=== PATIENT | female | born 1940 | race Caucasian/White ===

== ENCOUNTER 2022-09-03 20:35 | Inpatient (IN) | payer OTHER, MEDICAID ==
[~2022-09-03] VITALS: Ht 2.5 cm; Wt 59.5 kg
[2022-09-04] VITALS (7 sets, daily range): BP systolic 150–169; PULSE 72–76; RESP 16–18; TEMP 97.4–98.5; O2SAT 93–97
[2022-09-04] MEDS ORDERED: DEXTROSE 50% JECT 50 ML DISP.SYRIN IVP PRN (02:00)
[2022-09-04] MEDS ORDERED: GLUCOSE (DEXTROSE) ORAL GEL -Adults PO PRN (02:00)
[2022-09-04] MEDS ORDERED: INSULIN REGULAR, HUMAN 100 UNITS/ML, 3 ML VIAL (humuLIN R) SUBCUT PRN (02:00)
[2022-09-04] MEDS ORDERED: MORPHINE 2 MG/ML INJ. SYRINGE IVP PRN ×2 (02:00)
[2022-09-04] MEDS ORDERED: D5W 1,000 ML IV PRN (02:00)
--- NOTE | 2022-09-04 02:00 | NUR ---
ADMISSION NOTE Received patient from [facility] via Medical transport in a gurney, for a direct ADMISSION. Patient admitted with diagnosis of SMALL BOWEL OBSTRUCTION. Patient is AA&Ox1 Macedonian speaking, does not make needs known with a history of dementia. Patient was admitted under the care of Dr. Billie Montes. Was notified and new orders were received to admit the patient and follow up care. Patient had no belonging. Patient was assessed as indicated and NGT was noted to the Right nare that is now on intemittent suction. Fluids were started as indicated. Will continue to monitor.
[2022-09-04] MEDS: D5/0.45 NS 1,000 ML IV SCH ×2 (03:49→13:59)
[2022-09-04 04:43] LABS: BASOPHILS # (AUTO) 0.1 K/uL (0.0-0.2); BASOPHILS % (AUTO) 0.6 % (0.0-2.0); EOSINOPHILS % (AUTO) 0.1 % (0.0-4.0); HEMATOCRIT 38.7 % (36-48); HEMOGLOBIN 12.7 g/dL (12.0-16.0); LYMPHOCYTES # (AUTO) 1.5 K/uL (1.0-5.5); LYMPHOCYTES % (AUTO) 17.1 % (20.5-51.5); MEAN CORPUSCULAR HEMOGLOBIN 28 pg (27-31); MEAN CORPUSCULAR HGB CONC 33 % (32-36); MEAN CORPUSCULAR VOLUME 84 fL (79.0-98.0); MONOCYTES # (AUTO) 0.9 K/uL (0.0-1.0); MONOCYTES % (AUTO) 9.7 % (1.7-9.3); NEUTROPHILS # (AUTO) 6.4 K/uL (1.8-7.7); NEUTROPHILS % (AUTO) 72.5 % (40.0-70.0); PLATELET COUNT (AUTO) 199 K/uL (130-430); RED BLOOD CELL COUNT(AUTO) 4.59 MIL/uL (4.2-6.2); RED CELL DISTRIBUTION WIDTH 14.9 % (9.0-15.0); WHITE BLOOD COUNT (AUTO) 8.8 K/uL (4.8-10.8)
[2022-09-04 04:57] LABS: ALANINE AMINOTRANSFERASE 41 U/L (12-78); ALBUMIN 3.4 g/dL (3.4-4.8); ANION GAP 8 (5-15); ASPARTATE AMINOTRANSFERASE 47 U/L (10-37); CALCIUM 8.2 mg/dL (8.4-11.0); CHLORIDE 105 mmol/L (98-107); CREATININE 0.98 mg/dL (0.55-1.30); GLUCOSE 152 mg/dL (70-99); TOTAL BILIRUBIN 0.8 mg/dL (0.0-1.0); UREA NITROGEN, BLOOD 39 mg/dL (8-21)
--- NOTE | 2022-09-04 08:32 | NUR ---
OPENING NOTES: RECEIVED BEDSIDE SBAR FROM PM SHIFT NURSE CARMINE RN, NO S/S OF ANY DISTRESS NON LABOR BREATHING, BED AT LOCKED AND LOW POSITION CALL LIGHT IN REACH, ABLE TO MAKE NEEDS KNOWN, ALL SAFETY CHECKS DONE AND WILL DO THOUGHT THE DAY. WILL GIVE MEDS PER ORDERS.
--- NOTE | 2022-09-04 08:45 | NUR ---
CONSULTATION PAGED/CALLED Reason for Consultation: sbo Person Who was Notified: left message for Dr. Mathew adventure education teacher Consulting Physician: Dr. Anthony Mathew adventure education teacher for Dr. Cook [employer] Legal Assistant Specialty: surgeon Ordering Physician: Billie
--- NOTE | 2022-09-04 12:13 | NUR ---
Received SS consult: ELECTRIC REPAIR SUPERVISOR attempted to meet with , however, she was not able to be aroused to provide any meaningful information. Pt. with HX of Dementia, she was transferred from [facility] today. ELECTRIC REPAIR SUPERVISOR contacted family and left VM to Susannah Clements [phone] to obtain Pt. HX for SS assessment / DCP planning. Pt. has HCP, ELECTRIC REPAIR SUPERVISOR also contacted HCP social sciences professor to refer Pt. for follow-up.
[2022-09-04] MEDS ORDERED: ONDANSETRON HCL 4 MG/2 ML VIAL IVP PRN (14:15)
[2022-09-04] MEDS ORDERED: LORazepam 2 MG/ML VIAL IVP PRN (14:15)
[2022-09-04] MEDS: cefTRIAXone 1 GM in D5W 50 ML IV SCH (16:58)
--- NOTE | 2022-09-04 18:43 | NUR ---
CLOSING NOTES: PATIENT REMAINED STABLE THOUGHT OUT THE DAY NO S/S OF ANY DISTRESS, NON LABOR BREATHING, BED AT LOCKED AND LOW POSITION, CALL LIGHT IN REACH, ALL SAFETY CHECKS DONE, WILL GIVE PM SHIFT NURSE BEDSIDE SBAR.
[2022-09-04] MEDS ORDERED: LABETALOL 100 MG/ 20ML VIAL IVP ONE (20:45)
[2022-09-05] VITALS (8 sets, daily range): BP systolic 131–152; PULSE 64–78; RESP 17–18; TEMP 96.9–99.1; O2SAT 95–97
[2022-09-05] MEDS: D5/0.45 NS 1,000 ML IV SCH ×3 (00:02→20:02)
--- NOTE | 2022-09-05 01:15 | NUR ---
IV PLACEMENT: #22 gauge angiocath placed to LFA. Use of asceptic technique. Opsite placed over site. Blood return noted. Flushed with 10 cc of normal saline. No evidence of infiltration noted. Patient tolerated well.
[2022-09-05 06:02] LABS: BASOPHILS % (AUTO) 0.2 % (0.0-2.0); EOSINOPHILS # (AUTO) 0.1 K/uL (0.0-0.4); EOSINOPHILS % (AUTO) 0.8 % (0.0-4.0); HEMATOCRIT 35.3 % (36-48); HEMOGLOBIN 11.7 g/dL (12.0-16.0); LYMPHOCYTES # (AUTO) 1.4 K/uL (1.0-5.5); LYMPHOCYTES % (AUTO) 21.2 % (20.5-51.5); MEAN CORPUSCULAR HEMOGLOBIN 28 pg (27-31); MEAN CORPUSCULAR HGB CONC 33 % (32-36); MEAN CORPUSCULAR VOLUME 84 fL (79.0-98.0); MONOCYTES # (AUTO) 0.7 K/uL (0.0-1.0); NEUTROPHILS # (AUTO) 4.6 K/uL (1.8-7.7); NEUTROPHILS % (AUTO) 67.8 % (40.0-70.0); PLATELET COUNT (AUTO) 175 K/uL (130-430); RED BLOOD CELL COUNT(AUTO) 4.18 MIL/uL (4.2-6.2); RED CELL DISTRIBUTION WIDTH 14.4 % (9.0-15.0); WHITE BLOOD COUNT (AUTO) 6.8 K/uL (4.8-10.8)
[2022-09-05 06:18] LABS: ANION GAP 7 (5-15); CHLORIDE 105 mmol/L (98-107); CREATININE 0.75 mg/dL (0.55-1.30); GLUCOSE 139 mg/dL (70-99); UREA NITROGEN, BLOOD 22 mg/dL (8-21)
--- NOTE | 2022-09-05 06:57 | NUR ---
CLOSING NOTES PT IN STABLE CONDITION. TURNED AND RE-POSITIONED Q 2H. PT KEPT CLEAN AND DRY. UA COLLECTED AND SENT TO LAB. NO FACIAL GRIMACING OR C/O PAIN. BED ALARM ON. BED LOCKED AND IN LOWEST POSITION. CALL LIGHT PLACED WITHIN PT'S REACH. SAFETY PRECAUTIONS MAINTAINED.
[2022-09-05 07:11] LABS: BILIRUBIN,URINE NEGATIVE (NEGATIVE); BLOOD, URINE NEGATIVE (NEGATIVE); CLARITY/URINE SL CLOUDY (CLEAR); COLOR,URINE YELLOW (YELLOW); GLUCOSE,URINE NEGATIVE (NEGATIVE); KETONES,URINE NEGATIVE (NEGATIVE); LEUKOCYTE ESTERASE ,URINE NEGATIVE (NEGATIVE); NITRITE, URINE POSITIVE (NEGATIVE); PROTEIN URINE 1+ (NEGATIVE); UROBILINOGEN,URINE 0.2 (0.2-1.0)
--- NOTE | 2022-09-05 08:14 | NUR ---
OPENING NOTES: RECEIVED BEDSIDE SBAR FROM PM SHIFT NURSE, NO S/S OF ANY DISTRESS NON LABOR BREATHING, BED AT LOCKED AND LOW POSITION CALL LIGHT IN REACH, ABLE TO MAKE NEEDS KNOWN, ALL SAFETY CHECKS DONE AND WILL DO THOUGHT THE DAY. WILL GIVE MEDS PER ORDERS.
[2022-09-05 09:15] LABS: RBC,URINE NONE SEEN /HPF (0-3); WBC,URINE 0-3 /HPF (0-3)
[2022-09-05 09:16] LABS: BACTERIA,URINE MODERATE /HPF (None Seen)
[2022-09-05 09:17] LABS: TRICHOMONAS,URINE None Seen /HPF (None Seen); YEAST,URINE Few /HPF (None Seen)
[2022-09-05 09:18] LABS: CALCIUM OXALATE CRYSTALS,UR None Seen /HPF (None Seen); CALCIUM PHOSPHATE CRYSTALS,UR None Seen /HPF (None Seen); COARSE GRANULAR CASTS,URINE None Seen /LPF (None Seen); FINE GRANULAR CASTS,URINE None Seen /LPF (None Seen); HYALINE CASTS, URINE None Seen /LPF (None Seen); MUCUS,URINE None Seen /LPF (None Seen); OTHER CASTS, URINE None Seen /LPF (None Seen); OTHER CRYSTALS,URINE None Seen /HPF (None Seen); TRIPLE PHOSPHATE CRYSTAL,UR None Seen /HPF (None Seen); URIC ACID CRYSTALS,URINE None Seen /HPF (None Seen); URINE AMORPHOUS PHOSPHATES None Seen /HPF (None Seen); URINE AMORPHOUS URATE None Seen /HPF (None Seen); WAXY CASTS,URINE None Seen /LPF (None Seen)
[2022-09-05] MEDS ORDERED: hydrALAZINE HCL 20 MG/ML VIAL IVP PRN (13:15)
[2022-09-05] MEDS: cefTRIAXone 1 GM in D5W 50 ML IV SCH (15:25)
--- NOTE | 2022-09-05 18:40 | NUR ---
CLOSING NOTES: PATIENT REMAINED STABLE THOUGHT THE DAY, NO S/S OF ANY DISTRESS, NON LABOR BREATHING, ALL SAFETY CHECK DONE, BED AT LOCKED AND LOW POSITION CALL LIGHT IN REACH, ABLE TO MAKE ALL NEEDS KNOWN, WILL GIVE PM SHIFT NURSE BEDSIDE SBAR.
--- NOTE | 2022-09-05 19:35 | NUR ---
OPENING NOTES RECEIVED REPORT FROM AM SHIFT NURSE. PT AWAKE, RESTING IN BED. FAMILY MEMBER AT BEDSIDE. NO S/S OF ANY DISTRESS NON LABORED BREATHING. NGT PATENT. PATIENT IS CLEAN AND DRY. VSS. BED AT LOCKED AND AT LOWEST POSITION. BED ALARM ACTIVATED. CALL LIGHT IN REACH. SAFETY PRECAUTIONS IN PLACE AND MAINTAINED.
[2022-09-06] VITALS (7 sets, daily range): BP systolic 123–145; PULSE 59–67; RESP 15–18; TEMP 97.4–98.8; O2SAT 97–98
[2022-09-06] MEDS: D5/0.45 NS 1,000 ML IV SCH ×3 (04:20→23:38)
[2022-09-06 06:07] LABS: BASOPHILS % (AUTO) 0.3 % (0.0-2.0); EOSINOPHILS # (AUTO) 0.2 K/uL (0.0-0.4); EOSINOPHILS % (AUTO) 2.5 % (0.0-4.0); HEMATOCRIT 33.9 % (36-48); HEMOGLOBIN 11.2 g/dL (12.0-16.0); LYMPHOCYTES # (AUTO) 1.5 K/uL (1.0-5.5); LYMPHOCYTES % (AUTO) 20.1 % (20.5-51.5); MEAN CORPUSCULAR HEMOGLOBIN 28 pg (27-31); MEAN CORPUSCULAR HGB CONC 33 % (32-36); MEAN CORPUSCULAR VOLUME 84 fL (79.0-98.0); MONOCYTES # (AUTO) 0.6 K/uL (0.0-1.0); MONOCYTES % (AUTO) 8.5 % (1.7-9.3); NEUTROPHILS # (AUTO) 5.1 K/uL (1.8-7.7); NEUTROPHILS % (AUTO) 68.6 % (40.0-70.0); PLATELET COUNT (AUTO) 168 K/uL (130-430); RED BLOOD CELL COUNT(AUTO) 4.04 MIL/uL (4.2-6.2); RED CELL DISTRIBUTION WIDTH 14.4 % (9.0-15.0); WHITE BLOOD COUNT (AUTO) 7.4 K/uL (4.8-10.8)
[2022-09-06 06:22] LABS: ALANINE AMINOTRANSFERASE 21 U/L (12-78); ALBUMIN 2.6 g/dL (3.4-4.8); ANION GAP 6 (5-15); ASPARTATE AMINOTRANSFERASE 15 U/L (10-37); CALCIUM 7.7 mg/dL (8.4-11.0); CHLORIDE 100 mmol/L (98-107); CREATININE 0.77 mg/dL (0.55-1.30); GLUCOSE 114 mg/dL (70-99); TOTAL BILIRUBIN 0.5 mg/dL (0.0-1.0); UREA NITROGEN, BLOOD 12 mg/dL (8-21)
--- NOTE | 2022-09-06 06:28 | NUR ---
CLOSING NOTES PT RESTING IN BED, VISIBLE CHEST RISE AND FALL. RESPONSIVE TO VERBAL AND TACTILE STIMULI. NO S/S OF DISTRESS. NGT PATENT. PATIENT IS CLEAN AND DRY. BED AT LOCKED AND AT LOWEST POSITION. BED ALARM ACTIVATED. CALL LIGHT IN REACH. SAFETY PRECAUTIONS IN PLACE AND MAINTAINED.
[2022-09-06 07:46] LABS: ERYTHROCYTE SEDIMENTATION RATE 27 MM/HR (0-20)
--- NOTE | 2022-09-06 08:14 | NUR ---
opening notes: patient in bed with eyes closed. responded to name. no s/s of distress or pain reported. breathing is even and unlabored on ra 97%. all needs met at this time, safety checks made and call light within reach.
[2022-09-06] MEDS ORDERED: METOCLOPRAMIDE HCL 10 MG/2 ML VIAL IVP ONE (12:45)
[2022-09-06] MEDS: cefTRIAXone 1 GM in D5W 50 ML IV SCH (15:39)
--- NOTE | 2022-09-06 17:44 | NUR ---
ST EVALUATION COMPLETED. ST TX NOT INDICATED AT THIS TIME. RECOMMEND PO DIET OF PUREE AND THIN LIQUIDS. 1:1 SUPERVISION AND FULL ASPIRATION PRECAUTIONS.
[2022-09-06] MEDS: METOCLOPRAMIDE HCL 10 MG/2 ML VIAL IVP SCH ×2 (18:09→23:35)
--- NOTE | 2022-09-06 18:44 | NUR ---
closing notes: patient in bed with eyes opened. family at bedside. no s/s of distress or pain noted. breathing is even and unlabored on ra 97%. waiting for call back from md for dvt prophylactic. all needs met at this time, safety checks made and call light within reach. will endorse to shift supervisor melting nurse. Addendum: 09/06/22 at [address]el LVN [address] ANTOINE ORDERED SCD'S BILATERALLY. APPLIED THEM TO PATIENT LEGS.
[2022-09-07] VITALS (7 sets, daily range): BP systolic 135–159; PULSE 63–71; RESP 16–18; TEMP 97.5–98.3; O2SAT 96–97
[2022-09-07 05:24] LABS: BASOPHILS % (AUTO) 0.1 % (0.0-2.0); EOSINOPHILS # (AUTO) 0.1 K/uL (0.0-0.4); EOSINOPHILS % (AUTO) 1.2 % (0.0-4.0); HEMATOCRIT 33.2 % (36-48); HEMOGLOBIN 11.3 g/dL (12.0-16.0); LYMPHOCYTES # (AUTO) 1.5 K/uL (1.0-5.5); MEAN CORPUSCULAR HEMOGLOBIN 28 pg (27-31); MEAN CORPUSCULAR HGB CONC 34 % (32-36); MEAN CORPUSCULAR VOLUME 83 fL (79.0-98.0); MONOCYTES # (AUTO) 0.6 K/uL (0.0-1.0); NEUTROPHILS # (AUTO) 4.6 K/uL (1.8-7.7); NEUTROPHILS % (AUTO) 67.7 % (40.0-70.0); PLATELET COUNT (AUTO) 182 K/uL (130-430); RED BLOOD CELL COUNT(AUTO) 4.02 MIL/uL (4.2-6.2); WHITE BLOOD COUNT (AUTO) 6.7 K/uL (4.8-10.8)
[2022-09-07 05:46] LABS: ANION GAP 8 (5-15); CALCIUM 8.2 mg/dL (8.4-11.0); CHLORIDE 100 mmol/L (98-107); CREATININE 0.77 mg/dL (0.55-1.30); GLUCOSE 130 mg/dL (70-99); UREA NITROGEN, BLOOD 7 mg/dL (8-21)
[2022-09-07] MEDS: METOCLOPRAMIDE HCL 10 MG/2 ML VIAL IVP SCH ×4 (05:46→23:38)
--- NOTE | 2022-09-07 08:00 | NUR ---
Start of shift Pt asleep and does wake up when aroused with light stimuli, then falls back to sleep. Pt has IV in RFA intact and patent infusing iVF's well. Pt next to nurses' station for close observation for needs and care. Call light within reach.
[2022-09-07] MEDS: D5/0.45 NS 1,000 ML IV SCH ×2 (09:50→20:21)
[2022-09-07] MEDS ORDERED: MINERAL OIL 30 ML UDC PO ONE (12:00)
[2022-09-07 13:07] LABS: BASOPHILS % (AUTO) 0.4 % (0.0-2.0); EOSINOPHILS # (AUTO) 0.1 K/uL (0.0-0.4); EOSINOPHILS % (AUTO) 1.5 % (0.0-4.0); HEMATOCRIT 33.9 % (36-48); HEMOGLOBIN 11.5 g/dL (12.0-16.0); LYMPHOCYTES # (AUTO) 1.7 K/uL (1.0-5.5); LYMPHOCYTES % (AUTO) 24.7 % (20.5-51.5); MEAN CORPUSCULAR HEMOGLOBIN 28 pg (27-31); MEAN CORPUSCULAR HGB CONC 34 % (32-36); MEAN CORPUSCULAR VOLUME 83 fL (79.0-98.0); MONOCYTES # (AUTO) 0.6 K/uL (0.0-1.0); NEUTROPHILS # (AUTO) 4.4 K/uL (1.8-7.7); NEUTROPHILS % (AUTO) 64.4 % (40.0-70.0); PLATELET COUNT (AUTO) 188 K/uL (130-430); RED BLOOD CELL COUNT(AUTO) 4.09 MIL/uL (4.2-6.2); RED CELL DISTRIBUTION WIDTH 14.2 % (9.0-15.0); WHITE BLOOD COUNT (AUTO) 6.7 K/uL (4.8-10.8)
[2022-09-07] MEDS: cefTRIAXone 1 GM in D5W 50 ML IV SCH (14:42)
--- NOTE | 2022-09-07 18:30 | NUR ---
End of shift Pt has had her daughters at bedside all shift to assist her with needs and care all shift. Pt was assisted in eating her Pureed diet for lunch and dinner. Pt tolerated diet well. Pt was maintained with safety precautions all shift. Pt was checked on q1' and PRN all shift for needs and care. RFA IV intact and patent infusing IVF's well. Call light within reach. Dr Downs was at bedside assessing pt and answering pt's daughter questions and concerns. Pt had PT eval and report on [employer] at this time. Pt has high dementia and unable to comprehend simple questions and orders. Pt stable at this time with daughter at bedside at this time. Call light within reach.
--- NOTE | 2022-09-07 20:32 | NUR ---
OPENING NOTES: Patient is was received during change of shift from AM shift nurse. Patient is in bed with daughter at bedside. Patient is AA&Ox1 unable to make needs known, with no noted s/s of distress at this time. Chest rise is even and unlabored on RA and call light is within reach. Safety measures are in place as per protocol. Will resume care and continue to monitor throughout the shift.
[2022-09-08 00:58] VITALS: BP_SYST 146; PULSE 76; RESP 20; TEMP 98.9; O2SAT 97
[2022-09-08] MEDS: METOCLOPRAMIDE HCL 10 MG/2 ML VIAL IVP SCH ×6 (05:31→23:10)
[2022-09-08] MEDS: D5/0.45 NS 1,000 ML IV SCH ×3 (05:33→23:10)
--- NOTE | 2022-09-08 06:56 | NUR ---
CLOSING NOTES: Patient is in bed resting no s/s of distress is noted at this time. Chest rise is even and unlabored on RA. Patient is noted to be stable at this time, all current shift needs have been met at this time and safety measures are in place at this time as per protocol. Will differ care to AM shift nurse for continuity of care.
[2022-09-08 10:15] VITALS: BP_SYST 143; PULSE 67; RESP 16; TEMP 98.1; O2SAT 98
[2022-09-08] MEDS: cefTRIAXone 1 GM in D5W 50 ML IV SCH (16:38)
--- NOTE | 2022-09-08 16:40 | NUR ---
PHYSICAL THERAPY CO-SIGN The Physical Therapy Progress Notes documented by English Adjunct Faculty have been reviewed. Reviewed/Co-Signed by: Garrett Hsu Documentation Done by:LEILA NINA Addendum: 09/08/22 at 1641 by Garrett Hsu PT Amended: Links added.
--- NOTE | 2022-09-08 17:45 | NUR ---
Dr. Wise rounding on unit and made aware that pt potassium level was 3.1 and does not appear to have been replaced. Also informed to complete med reconcilliation.
--- NOTE | 2022-09-08 18:04 | NUR ---
Pt's PIV removed d/t mild redness at site and pain with flushing. Reglan will be wasted. daughter requested to wait to see if the pt will discharge tonight as dr. Li is on the unit making rounds. New PIV will be started and reglan given if she does not discharge.
[2022-09-08 18:09] VITALS: BP_SYST 136; PULSE 69; RESP 17; TEMP 97.9; O2SAT 97
--- NOTE | 2022-09-08 19:00 | NUR ---
I have spoken with Susannah, pt's daughter, about discharge planning. She was requesting to DC prior to having the home health and DME arranged. She stated they would continue care same as pre hospitalization until initiated. Dr. Wise was made aware of the request but stated the pt is with [facility] and could be a liability for himself. I informed Susannah that I have left a message with FLORENCIO Thorpe, requesting assistance and she reported she has previously spoken with FLORENCIO Sanon, with [employer] and has her info and will call her. Until the arrangements are made he will not discharge but would have to leave AMA, daughter educated and stated will is willing to stay.
--- NOTE | 2022-09-08 19:30 | NUR ---
The pt's daughter, Susannah. has refused new PIV start for her mother.
[2022-09-08 20:00] VITALS: BP_SYST 187; PULSE 62; RESP 18; TEMP 97.4; O2SAT 95
[2022-09-08 20:15] VITALS: O2SAT 96
[2022-09-08] MEDS ORDERED: cloNIDine HCL 0.1 MG TABLET PO PRN (22:30)
[2022-09-09] VITALS: BP_SYST 120; PULSE 74; RESP 16; TEMP 96.9; O2SAT 96
[2022-09-09 05:10] VITALS: BP_SYST 130; PULSE 71; RESP 16
[2022-09-09 06:23] LABS: ANION GAP 5 (5-15); CALCIUM 8.5 mg/dL (8.4-11.0); CHLORIDE 101 mmol/L (98-107); CREATININE 0.92 mg/dL (0.55-1.30); GLUCOSE 101 mg/dL (74-106); UREA NITROGEN, BLOOD 8 mg/dL (8-21)
[2022-09-09 06:24] LABS: BASOPHILS % (AUTO) 0.4 % (0.0-2.0); EOSINOPHILS # (AUTO) 0.1 K/uL (0.0-0.4); EOSINOPHILS % (AUTO) 0.9 % (0.0-4.0); HEMATOCRIT 33.3 % (36-48); HEMOGLOBIN 11.3 g/dL (12.0-16.0); LYMPHOCYTES # (AUTO) 1.9 K/uL (1.0-5.5); MEAN CORPUSCULAR HEMOGLOBIN 28 pg (27-31); MEAN CORPUSCULAR HGB CONC 34 % (32-36); MEAN CORPUSCULAR VOLUME 83 fL (79.0-98.0); MONOCYTES # (AUTO) 0.8 K/uL (0.0-1.0); MONOCYTES % (AUTO) 11.6 % (1.7-9.3); NEUTROPHILS # (AUTO) 4.3 K/uL (1.8-7.7); NEUTROPHILS % (AUTO) 60.1 % (40.0-70.0); PLATELET COUNT (AUTO) 210 K/uL (130-430); RED BLOOD CELL COUNT(AUTO) 4.03 MIL/uL (4.2-6.2); RED CELL DISTRIBUTION WIDTH 13.9 % (9.0-15.0); WHITE BLOOD COUNT (AUTO) 7.2 K/uL (4.8-10.8)
--- NOTE | 2022-09-09 06:51 | NUR ---
CLOSING NOTES: Patient is in bed resting no s/s of distress is noted at this time. Chest rise is even and unlabored on RA. Patient was reported to have an elevated BP during the shift, current PRN was for IVP but daughter refused the infusion of new line, Dr. Wise was paged and new order was received for PO medication to be given PRN for SBP >150. Upon reassessment BP was noted to be WNL so PRN was no longer required but order remains in place for future need. Patient is pending possible discharge this morning so patient belongings were collected and take by daughter Susannah who was at bedside and inventory and belonging intervention was completed. Patient is noted to be stable at this time, all current shift needs have been met at this time, and safety measures remain in place as per protocol. Will differ care to AM shift nurse for continuity of care.
[2022-09-09 09:19] VITALS: BP_SYST 106; PULSE 72; RESP 22; TEMP 97.1; O2SAT 96
[2022-09-09] MEDS: METOCLOPRAMIDE HCL 10 MG/2 ML VIAL IVP SCH (11:39)
[2022-09-09] MEDS: D5/0.45 NS 1,000 ML IV SCH (11:39)
[2022-09-09 11:41] VITALS: BP_SYST 119; PULSE 64; RESP 20; TEMP 96.7; O2SAT 98
[2022-09-09] MEDS: cefTRIAXone 1 GM in D5W 50 ML IV SCH (14:20)
--- NOTE | 2022-09-09 15:21 | NUR ---
PHYSICAL THERAPY CO-SIGN The Physical Therapy Progress Notes documented by Data Entry Processor have been reviewed. Reviewed/Co-Signed by: Garrett Hsu Documentation Done by:LEILA NINA Addendum: 09/09/22 at 1521 by Garrett Hsu PT Amended: Links added.
[2022-09-09 16:00] VITALS: BP_SYST 132; PULSE 70; RESP 18; TEMP 97.9; O2SAT 96
--- NOTE | 2022-09-09 16:01 | NUR ---
Dr. Wise has been paged to inform him that all arrangements have been made for HH and DME. Requesting DC orders.
[2022-09-09 17:19] VITALS: BP_SYST 132; PULSE 70; RESP 18; TEMP 97.9; O2SAT 96
--- NOTE | 2022-09-09 17:50 | NUR ---
D/C Patient Patient's daughters were given D/C instructions. There were no medications listed in the system but the daughter reported she was taking home medications and they were instructed to continue. They were also educated on pureed diet and how to advance as tolerated. Exit Care provided. Daughters verbalized understanding. MD discussed with family the results and treatment provided. Ambulatory with assist for discharge to home. Patient in stable condition, ID band removed. IV catheter removed, intact and dressing applied, no active bleeding. No new rx given. Family educated on pain management. All belongings sent with patient per family report. Pt was escorted to [facility] by myself and assisted into private vehicle.
== END 2022-09-09 17:50 | disposition home health service (06) | DRG 389 ==
LOC: SMU 23:40
PROVIDERS: ADMIT Preventive Medicine Preventive Medicine/Occupational Environmental Medicine; ATTEND Specialist
PROC: 0D9670Z Drainage of Stomach with Drainage Device, Via Natural or Artificial Opening (ICD-10-PCS; principal; 2022-09-05)
DX: K56.609 Unspecified intestinal obstruction, unspecified as to partial versus complete obstruction (principal); I24.8 Other forms of acute ischemic heart disease; N39.0 Urinary tract infection, site not specified; E03.9 Hypothyroidism, unspecified; E78.00 Pure hypercholesterolemia, unspecified; F03.C0 Unspecified dementia, severe, without behavioral disturbance, psychotic disturbance, mood disturbance, and anxiety; E83.52 Hypercalcemia; D64.9 Anemia, unspecified; I10 Essential (primary) hypertension; Z79.1 Long term (current) use of non-steroidal anti-inflammatories (NSAID); Z79.899 Other long term (current) drug therapy; Z86.73 Personal history of transient ischemic attack (TIA), and cerebral infarction without residual deficits
CPT/HCPCS: 36415; 71045; 74018; 80048; 80053; 81000; 85025; 85651-TC; 86140; 87081; 87086; 92610-GN; 93306; 97110-GP; 97530-GP; J0360; J0696; J1815; J2270; J2765; J3490; J7060